=== PATIENT | female | born 1965 | race Caucasian/White ===

== ENCOUNTER 2017-12-05 06:19 | Emergency (ER) | payer OTHER ==
[2017-12-05] MEDS ORDERED: Amoxicillin/Potassium Clav 875 MG TAB ONE (06:36)
[2017-12-05] MEDS ORDERED: HYDROcodone/Acetaminophen 10/325 mg Tablet ONE ×2 (06:49→06:59)
[2017-12-05] MEDS ORDERED: Sulfameth/Trimethoprim DS 800-160mg TAB ONE (06:59)
== END 2017-12-05 06:55 | disposition home or self-care (01) ==
LOC: BURERS 06:19
DX: K12.2 Cellulitis and abscess of mouth (principal); J44.9 Chronic obstructive pulmonary disease, unspecified; E11.9 Type 2 diabetes mellitus without complications; E78.5 Hyperlipidemia, unspecified; I10 Essential (primary) hypertension; Z79.899 Other long term (current) drug therapy
CPT/HCPCS: J3370

== ENCOUNTER 2017-12-05 09:55 | Emergency (ER) | payer OTHER ==
[~2017-12-05 09:55] MED LIST: Iopamidol 370 76% 100 ML VIAL ONE
[2017-12-05] MEDS ORDERED: Morphine 4 MG/ML Carpuject ONE (10:31)
[2017-12-05 10:33] LABS: #Basophils 0.1 thou/uL (0.0-0.2); #Eosinphils 0.1 thou/uL (0.0-0.7); #Lymphocytes 1.7 thou/uL (1.20-3.40); #Monocytes 0.4 thou/uL (0.11-0.59); %Basophils 1.2 % (0.0-1.0); %Eosinophils 1.3 % (0.0-10.0); %Lymphocytes 23.8 % (21.0-51.0); %Neutrophils 68.7 % (42.0-75.0); Hemoglobin 13.9 g/dL (12.0-16.0); Mean Corpuscular HGB CONC 34.4 g/dL (32.0-36.0); Mean Corpuscular Hemoglobin 31.2 pg (27.0-31.0); Mean Corpuscular Volume 90.7 fL (78.0-98.0); Mean Platelet Volume 9.7 fL (7.4-10.4); Platelet Count 144 thou/uL (130-400); RBC Distribution Width 13.1 % (11.5-14.5); Red Blood Cell (RBC) Count 4.46 mill/uL (4.20-5.40); White Blood Cell (WBC) Count 7.2 thou/uL (4.8-10.8)
[2017-12-05] MEDS ORDERED: cefTRIAXone\\ROCEPHIN 2 GM VIAL ONE (10:38)
[2017-12-05 10:49] LABS: ALT (SGPT) 25 U/L (8-55); AST (SGOT) 16 U/L (5-34); Albumin 4.2 g/dL (3.5-5.0); Alkaline Phosphatase 107 U/L (40-150); Anion Gap 12 mmol/L (10-20); BUN (Urea Nitrogen) 13 mg/dL (9.8-20.1); Bilirubin, Total 0.3 mg/dL (0.2-1.2); Calc. Creatinine Clearance 0 mL/min (70-130); Calcium 9.1 mg/dL (7.8-10.44); Carbon Dioxide 28 mmol/L (22-29); Chloride 106 mmol/L (98-107); Estimated GFR-MDRD 88; Globulin 3.2 g/dL (2.4-3.5); Glucose 204 mg/dL (70-105); Potassium 4.4 mmol/L (3.5-5.1); Protein, Total 7.4 g/dL (6.0-8.3); Sodium 142 mmol/L (136-145)
--- NOTE | 2017-12-05 12:56 | CT ---
CT OF THE FACIAL BONES WITH CONTRAST: Date: 12-05-17 CT of the face was done for evaluation of an area of swelling and induration on the left side of the face and beneath the orbit. Axial slices were acquired after giving IV contrast. Coronal and sagittal reconstructions were done afterwards. There was no large dental abscess to explain the soft tissue findings. A very tiny amount of lucency was seen around the roots of one of the left maxillary bicuspids, but the degree was very unimpressiv e and it would seem unlikely that this would incite this much reaction. There is some mild mucosal th ickening in the left maxillary sinus, again not enough to cause this sort of reaction. The patient do es have a small periapical abscess on the left side of the mandible just to the left of midline invol ving the lateral incisors/cuspid region. This is quite remote from the area of swelling, but is certa inly present. The other paranasal sinuses are clear. The orbits appear normal as do the retroorbital regions. The v isible portions of the patient's neck showed no acute findings. The airway is patent. IMPRESSION: 1. Area of soft tissue swelling and induration on the left beneath the orbit as described clinically. No gross abscess involving it or nearby was seen. 2. Small periorbital abscess in the mandible on the left side just to the left of midline. This does not appear associated with the above presenting symptoms. 3. Very meager lucency around some of the roots of the left maxillary bicuspid that does not seem suf ficient to explain the current soft tissue findings. POS: SARY
== END 2017-12-05 12:03 | disposition short-term general hospital (02) ==
LOC: BURERS 09:55
DX: L03.213 Periorbital cellulitis (principal); K02.9 Dental caries, unspecified; R59.0 Localized enlarged lymph nodes; E11.9 Type 2 diabetes mellitus without complications; J44.9 Chronic obstructive pulmonary disease, unspecified; E78.5 Hyperlipidemia, unspecified; I10 Essential (primary) hypertension; M06.9 Rheumatoid arthritis, unspecified; Z79.899 Other long term (current) drug therapy
CPT/HCPCS: 36415; 70488; 80053; 83605; 85025; 87040; 96374; 96375; 99283; J0696; J2270; J3370